=== PATIENT | female | born 1955 | race Caucasian/White ===

== ENCOUNTER 2017-10-12 07:01 | Day surgery (SDC) | payer BC, OTHER ==
[2017-10-12] MEDS ORDERED: MIDAZOLAM 2 MG/2 ML INJ ONE (07:17)
[2017-10-12] MEDS ORDERED: PROPOFOL INJ 200 MG/20 ML VIAL IV ONE (07:17)
[2017-10-12] MEDS ORDERED: FENTANYL CITRATE INJ/PF 100 MCG/2 ML AMPUL ONE (07:18)
[2017-10-12 08:56] VITALS: BP 126/81
--- NOTE | 2017-10-12 13:24 | Operative Report ---
Operative Report DATE OF SURGERY: 10/12/17 Operative Report: The risks, benefits and alternatives of the procedure including risks of bleeding, perforation requiring surgery are explained to the patient in detail and informed consent is obtained. Patient was taken to the endoscopy suite and placed in the left, lateral decubital position. Timeout was performed. Propofol medications administered. A rectal examination is done which did not reveal any masses, tears or fissures. An Olympus videoscope was inserted in the patient's rectum. It is carefully advanced all the way to the cecum. Cecum was identified by the usual anatomical landmarks including the ileocecal valve as well as appendiceal office. Photodocumentation is obtained. The scope was then sequentially pulled back via the various segments of the colon including the ascending colon, hepatic flexure, transverse colon, splenic flexure, descending colon finding to the rectosigmoid portions of the colon. Retroflexion maneuver is performed. PREOPERATIVE DIAGNOSIS: Colorectal cancer screening POSTOPERATIVE DIAGNOSIS: Descending colon polyp which is removed via snare polypectomy and retrieved. Sigmoid diverticulosis. Internal hemorrhoids OPERATION: Colonoscopy with snare polypectomy SURGEON: KESHAWN MC ANESTHESIA: LMAC TISSUE REMOVED OR ALTERED: As noted above. COMPLICATIONS: None. ESTIMATED BLOOD LOSS: None. INTRAOPERATIVE FINDINGS: As noted above. PROCEDURE: Patient tolerated the procedure well. No immediate postprocedure complications are noted. Patient discharged in good condition. Discharge date 10/12/2017. Discharge diet: Regular. Discharge activity: Regular. 2-3 week follow-up to discuss findings. 3-5 year surveillance colonoscopy. We will await pathology. Patient is instructed to call the office or proceed to the emergency room should there be any further problems or questions.
== END 2017-10-12 09:01 | disposition home or self-care (01) ==
LOC: END 07:01
PROVIDERS: ATTEND Internal Medicine Gastroenterology
PROC: 0DBM8ZX Excision of Descending Colon, Via Natural or Artificial Opening Endoscopic, Diagnostic (ICD-10-PCS; principal; 2017-10-12 08:00)
DX: Z12.11 Encounter for screening for malignant neoplasm of colon (principal); D12.4 Benign neoplasm of descending colon; K64.8 Other hemorrhoids; K57.30 Diverticulosis of large intestine without perforation or abscess without bleeding; I10 Essential (primary) hypertension; Z79.899 Other long term (current) drug therapy
CPT/HCPCS: 45385; 88305 ×2; J2250; J3010; J2704

== ENCOUNTER → 2019-09-07 | Outpatient (CLI) | payer BC ==
--- NOTE | 2019-09-08 13:29 | Pulmonary Function Test ---
Pulmonary Function Test Date of Procedure:: 09/07/19 INDICATION:: Dyspnea Referring Provider: Annette Catherine PA-C [employer] Architect: Alannah Acosta, [employer] - Report Spirometry: Spirometry: pre-FVC:[3.06 L 100%] pre-FEV:1 2.47 L 101% pre-FEV1/FVC %: 81 predicted: 82 [id number]%: 2.45 L 95% Lung Volume: Total lung capacity: 4.39 L 87% Vital capacity: 3.06 L 100% Inspiratory capacity: 2.46 L FRC N2: 1.92 L 73% ERV: 0.29 L RV: 1.32 L 68% RV/TLC %:: 30 predicted 39 Diffusion Capactity: DLCO: 19.6 88% DLCO/VA: 4.47 117% Impression: Obstructive ventilatory defect. No restrictive ventilatory defect. No hyperinflation or air trapping. Normal diffusion capacity.
== END ==
LOC: RT 14:07
PROVIDERS: ATTEND Physician Assistant
DX: R06.02 Shortness of breath (principal)
CPT/HCPCS: 94010; 94727; 94729